=== PATIENT | female | born 1985 | race Two or more races ===

== ENCOUNTER 2016-12-13 09:31 | Emergency (ER) | payer MEDICAID ==
[~2016-12-13] VITALS: Ht 182.9 cm; Wt 96.8 kg
[2016-12-13] MEDS ORDERED: SODIUM CHLORIDE 0.9% 1,000 ML IV ONE (10:08)
[2016-12-13] MEDS ORDERED: ONDANSETRON 2MG/ML, 2ML ONE (10:13)
[2016-12-13] MEDS ORDERED: MORPHINE SULFATE 4 MG/ML, 1ML ONE ×2 (10:13→11:34)
[2016-12-13] MEDS ORDERED: ANXIETY MED PO (10:24)
[2016-12-13] MEDS: MORPHINE SULFATE 4 MG/ML, 1ML IVPush PRN ×2 (10:24→11:36)
[2016-12-13] MEDS ORDERED: SODIUM CHLORIDE FLUSH 10ML SYR IVF ONE (10:30)
[2016-12-13] MEDS ORDERED: SODIUM CHLORIDE 0.9% 1,000ML IVBOLUS ONE (10:30)
[2016-12-13] MEDS ORDERED: ONDANSETRON 2MG/ML, 2ML IVPush ONE (10:30)
[2016-12-13 10:39] LABS: HEMATOCRIT 42.3 % (34.6-47.8); HEMOGLOBIN 13.8 g/dL (11.7-16.4); WHITE BLOOD COUNT 13.1 x10^3/uL (3.4-10)
[2016-12-13 11:52] LABS: ASPARTATE AMINO TRANSFERASE 16 U/L (15-37); BLOOD UREA NITROGEN 11 mg/dL (7-18)
[2016-12-13 12:35] VITALS: BP 123/62
== END 2016-12-13 12:39 | disposition home or self-care (01) ==
LOC: ED 12:21
DX: N83.201 Unspecified ovarian cyst, right side (principal)
CPT/HCPCS: 36415; 76830; 80053; 81003; 84703; 85025; 96361; 96374; 96375; 96376; 99285; J2405; J7030